=== PATIENT | male | born 1955 | race Hispanic/Latino ===

== ENCOUNTER 2019-12-15 05:57 | Day surgery (SDC) | payer OTHER ==
[~2019-12-15] VITALS: Ht 170.2 cm; Wt 83.0 kg
[~2019-12-15 05:57] MED LIST: BACL10TA PO; BENZ-51 PO; FURO20TA4 PO; METO-391 PO; PANT40TA PO; SUCR1ORA3 PO; SYMB8060 IH
[2019-12-15] MEDS ORDERED: PROPOFOL 10 MG/ML 20ML VIAL IV ONE (06:45)
[2019-12-15 07:00] VITALS: BP 142/79
[2019-12-15] MEDS ORDERED: LORA10CA PO (07:17)
[2019-12-15] MEDS ORDERED: SODIUM CHLORIDE 0.9% 1000ML 1,000 ML IV ONE (07:19)
[2019-12-15 08:30] VITALS: BP 115/67
[2019-12-15 08:35] VITALS: BP 121/65
[2019-12-15 08:40] VITALS: BP 131/75
--- NOTE | 2019-12-15 08:50 | NUR ---
PT LEFT VIA WHEELCHAIR IN PVT CAR, PT. D/C INSTRUCTIONS GIVEN TO , ALONG WITH F/U APPT. PT. V/S STABLE WITH NO COMPLICATION.
== END 2019-12-15 08:50 | disposition home or self-care (01) ==
LOC: ENDO 05:57 → DAH 05:57 → ENDO 08:50
PROVIDERS: ATTEND Internal Medicine
DX: D50.9 Iron deficiency anemia, unspecified (principal); K29.50 Unspecified chronic gastritis without bleeding; K57.30 Diverticulosis of large intestine without perforation or abscess without bleeding; K64.0 First degree hemorrhoids; I10 Essential (primary) hypertension; E78.5 Hyperlipidemia, unspecified; J45.909 Unspecified asthma, uncomplicated; Z88.8 Allergy status to other drugs, medicaments and biological substances; Z79.899 Other long term (current) drug therapy; Z72.89 Other problems related to lifestyle; Z98.49 Cataract extraction status, unspecified eye; Z98.890 Other specified postprocedural states; Z82.49 Family history of ischemic heart disease and other diseases of the circulatory system; Z83.3 Family history of diabetes mellitus
CPT/HCPCS: 43239; 45378; 88305; A4215; A4221; A4222; A4223; A4606; A4620; A4663; J2704; J7030

== ENCOUNTER 2020-06-28 16:56 | Inpatient (IN) | payer OTHER ==
[~2020-06-28 16:56] MED LIST changes: -BENZ-51 PO; +LORA10CA PO
[2020-06-28 17:35] LABS: BASOPHILS % (AUTO) 0.6 % (0.0-5.0); EOSINOPHILS % (AUTO) 1.5 % (0.0-8.0); MEAN CORPUSCULAR HEMOGLOBIN 20.5 pg (27.0-33.0); MEAN CORPUSCULAR HGB CONC 26.8 g/dL (32.0-36.0); MEAN CORPUSCULAR VOLUME 76.6 fL (79-99); MONOCYTES % (AUTO) 21.2 % (3.0-13.0); NEUTROPHILS % (AUTO) 62.1 % (40.0-77.0); NUCLEATED RED BLOOD CELLS 5.1 % (0.0-0.19); PLATELET COUNT (AUTO) 270 K/uL (130-400); RED BLOOD CELL COUNT(AUTO) 2.39 MIL/uL (4.50-6.20); WHITE BLOOD COUNT (AUTO) 4.7 K/uL (4.8-10.8)
[2020-06-28 17:49] LABS: HEMATOCRIT 18.3 % (42-54)
[2020-06-28 17:55] LABS: ALBUMIN 2.9 g/dL (3.5-5.0); BILIRUBIN,TOTAL 1.7 mg/dL (0.2-1.0); CREATININE 1.1 mg/dL (0.5-1.5); POTASSIUM 4.1 mmol/L (3.5-5.1); TOTAL PROTEIN, SERUM 6.7 g/dL (6.0-8.3)
[2020-06-28 18:15] LABS: BASOPHILS % (MANUAL) 1 % (0-2); EOSINOPHILS % (MANUAL) 1 % (1-6); LYMPHOCYTES % (MANUAL) 19 % (22-44); MAN.DIFF COMMENT-IMPRESSION MANUAL DIFFERENTIAL; MONOCYTES % (MANUAL) 13 % (2-9); PLATELET MORPHOLOGY COMMENT ADEQUATE; SEGMENTED NEUTROPHILS % 66 % (40-70)
[2020-06-28 18:38] LABS: INR 1.36 (0.85-1.15); PARTIAL THROMBOPLASTIN TIME 29.8 SEC (26.3-35.5); PROTHROMBIN TIME 14.5 SEC (9.6-11.6)
[2020-06-28] MEDS ORDERED: FUROSEMIDE 10 MG/ML 2ML VIAL ONE (19:12)
[2020-06-28] MEDS ORDERED: DiphenhydrAMINE HCL 50 MG/ML VIAL ONE (19:12)
[2020-06-28 22:40] VITALS: BP 119/56
--- NOTE | 2020-06-28 22:40 | NUR ---
PATIENT TRANSFERRED FROM ER WITH 2ND OF 2 UNITS OF PRBC'S INFUSING. PATIENT AWAKE, ALERT AND ORIENTED X3, DENIES DISCOMFORT. NO ACUTE DISTRESS NOTED, WILL CONTINUE TO MONITOR.
--- NOTE | 2020-06-28 23:40 | NUR ---
PATIENT COMPLETED THE SECOND UNIT OF PRBC'S WITHOUT ANY ADVERSE REACTION. PATIENT DENIES DISCOMFORT AT PRESENT. WILL CONTINUE TO MONITOR.
[2020-06-29] VITALS (7 sets, daily range): BP systolic 107–124; BP diastolic 43–77
[2020-06-29] MEDS ORDERED: METO25TA6 PO (00:04)
[2020-06-29] MEDS ORDERED: SUCR1ORA15 PO (00:04)
[2020-06-29] MEDS ORDERED: BACL10TA PO (00:04)
[2020-06-29] MEDS ORDERED: FURO20TA4 PO (00:04)
[2020-06-29] MEDS ORDERED: ALBU8.5H8 IH (00:04)
[2020-06-29] MEDS ORDERED: FOLI1 PO (00:04)
[2020-06-29] MEDS ORDERED: BENZ-17 PO (00:04)
[2020-06-29] MEDS ORDERED: FERS325 PO (00:04)
[2020-06-29] MEDS ORDERED: BENZONATATE 100 MG CAPSULE PO ONE (01:25)
[2020-06-29 06:16] LABS: HEMATOCRIT 23.4 % (42-54); MEAN CORPUSCULAR HEMOGLOBIN 22.6 pg (27.0-33.0); MEAN CORPUSCULAR HGB CONC 28.6 g/dL (32.0-36.0); MEAN CORPUSCULAR VOLUME 78.8 fL (79-99); NUCLEATED RED BLOOD CELLS 4.9 % (0.0-0.19); RED BLOOD CELL COUNT(AUTO) 2.97 MIL/uL (4.50-6.20); RED CELL DISTRIBUTION WIDTH 22.3 % (11.0-15.5); WHITE BLOOD COUNT (AUTO) 4.5 K/uL (4.8-10.8)
[2020-06-29 06:31] LABS: CREATININE 0.9 mg/dL (0.5-1.5); POTASSIUM 3.7 mmol/L (3.5-5.1)
[2020-06-29] MEDS ORDERED: ALBUTEROL INHALER 90MCG/INH IH PRN (10:15)
[2020-06-29] MEDS ORDERED: PANTOPRAZOLE SODIUM 40 MG TABLET.DR ONE (11:08)
[2020-06-29] MEDS ORDERED: FERROUS SULFATE 325 MG TABLET.DR ONE (11:08)
[2020-06-29] MEDS ORDERED: SUCRALFATE 1 GM TABLET ONE (11:09)
[2020-06-29] MEDS ORDERED: METOPROLOL TARTRATE 25 MG TAB ONE (11:09)
[2020-06-29] MEDS ORDERED: FOLIC ACID 1 MG TABLET ONE (11:09)
[2020-06-29] MEDS ORDERED: BACLOFEN 10 MG TABLET ONE (11:10)
[2020-06-29] MEDS: ALBUTEROL SULFATE 0.083% 2.5 MG/3 ML INH IH SCH ×2 (18:29→23:22)
--- NOTE | 2020-06-29 19:15 | NUR ---
ROUNDS VISITED WITH PATIENT. POC DISCUSSED. NEW ORDERS RECEIVED AND CARRIED OUT. PATIENT AWARE. NO QUESTIONS OR CONCERNS VOICED AT THIS TIME. PATIENT AAOX4. NO COMPLAINTS OF PAIN VOICED AT THIS TIME. VITALS STABLE. AFEBRILE. RESP EVEN AND UNLABORED. NO SOB NOTED. NO ACTIVE BLEEDING NOTED. CALL LIGHT WITHIN REACH. WILL CONTINUE TO BE OBSERVED. Addendum: 06/29/20 at 2134 by DERICK ROMAN RN RN Amended: Links added.
[2020-06-29] MEDS: BUDESONIDE 0.5 MG/2 ML INH IH SCH (19:19)
--- NOTE | 2020-06-29 19:57 | NUR ---
INITIAL SW spoke with patient. He lives with spouse. No home services. DME: shower chair, rollator, BPM, nebulizer. Patient is able to complete ADL's independently and drives. PCP is Dr. Martinez. Pharmacy is [facility] on [address]. No safety concerns voiced by patient on returning home. DCP is home. Addendum: 06/29/20 at 1958 by LAUREN MORSE SS Amended: Links added.
[2020-06-29] MEDS: BACLOFEN 10 MG TABLET PO SCH (20:05)
[2020-06-29] MEDS: FUROSEMIDE 10 MG/ML 2ML VIAL IV SCH (20:11)
[2020-06-29] MEDS: METOPROLOL TARTRATE 25 MG TAB PO SCH (20:11)
--- NOTE | 2020-06-29 21:34 | NUR ---
BLOOD PATIENT STARTED ON BLOOD TRANSFUSION. VITALS STABLE. AFEBRILE. NO ADVERSE REACTIONS NOTED. ON ROOM AIR. NO SIGNS OF DISTRESS NOTED. CALL LIGHT WITHIN REACH. WILL CONTINUE TO BE OBSERVED. Addendum: 06/29/20 at 2138 by DERICK ROMAN RN RN Amended: Links added.
[2020-06-30 04:00] VITALS: BP 104/50
[2020-06-30 05:05] LABS: HEMATOCRIT 29.3 % (42-54); MEAN CORPUSCULAR HEMOGLOBIN 23.4 pg (27.0-33.0); MEAN CORPUSCULAR HGB CONC 29.7 g/dL (32.0-36.0); MEAN CORPUSCULAR VOLUME 78.8 fL (79-99); RED BLOOD CELL COUNT(AUTO) 3.72 MIL/uL (4.50-6.20); RED CELL DISTRIBUTION WIDTH 21.2 % (11.0-15.5); WHITE BLOOD COUNT (AUTO) 5.7 K/uL (4.8-10.8)
[2020-06-30 05:11] LABS: CREATININE 0.9 mg/dL (0.5-1.5); POTASSIUM 3.3 mmol/L (3.5-5.1)
[2020-06-30] MEDS ORDERED: LIDOCAINE HCL-MPF 1% 2ML VIAL IV PRN (05:30)
[2020-06-30] MEDS ORDERED: POTASSIUM CHLORIDE 10% ELIXIR 20 MEQ/15 ML UDCUP PO PRN (05:30)
[2020-06-30] MEDS ORDERED: POTASSIUM CHLORIDE 20MEQ/100ML 100 ML IV PRN (05:30)
[2020-06-30] MEDS: POTASSIUM CHLORIDE 20 MEQ ERTAB PO PRN ×4 (05:40→20:17)
[2020-06-30] MEDS: BUDESONIDE 0.5 MG/2 ML INH IH SCH ×2 (06:28→18:55)
[2020-06-30] MEDS: ALBUTEROL SULFATE 0.083% 2.5 MG/3 ML INH IH SCH ×3 (06:28→18:55)
[2020-06-30 08:11] VITALS: BP 123/47
[2020-06-30] MEDS: FUROSEMIDE 10 MG/ML 2ML VIAL IV SCH ×2 (08:23→20:18)
[2020-06-30] MEDS: BENZONATATE 100 MG CAPSULE PO PRN ×2 (08:23→18:02)
[2020-06-30] MEDS: SUCRALFATE 1 GM TABLET PO SCH (08:23)
[2020-06-30] MEDS: BACLOFEN 10 MG TABLET PO SCH ×2 (08:24→20:17)
[2020-06-30] MEDS: FERROUS SULFATE 325 MG TABLET.DR PO SCH ×2 (08:24→20:17)
[2020-06-30] MEDS: FOLIC ACID 1 MG TABLET PO SCH (08:24)
[2020-06-30] MEDS: METOPROLOL TARTRATE 25 MG TAB PO SCH ×2 (08:24→20:17)
[2020-06-30] MEDS: PANTOPRAZOLE SODIUM 40 MG TABLET.DR PO SCH (08:24)
[2020-06-30 11:49] VITALS: BP 116/51
[2020-06-30 16:58] VITALS: BP 118/60
[2020-06-30 20:00] VITALS: BP 122/60
[2020-06-30] MEDS ORDERED: GUAIFENESIN-CODEINE 5 ML SYRUP PO PRN (21:15)
[2020-07-01] VITALS: BP 114/63
[2020-07-01] MEDS: ALBUTEROL SULFATE 0.083% 2.5 MG/3 ML INH IH SCH ×4 (01:59→18:26)
[2020-07-01 03:44] VITALS: BP 111/63
[2020-07-01] MEDS: BUDESONIDE 0.5 MG/2 ML INH IH SCH ×2 (07:09→18:27)
[2020-07-01 08:00] VITALS: BP 128/71
[2020-07-01] MEDS ORDERED: FUROSEMIDE 20 MG TABLET PO SCH (09:00)
[2020-07-01] MEDS: METOPROLOL TARTRATE 25 MG TAB PO SCH (09:49)
[2020-07-01] MEDS: FOLIC ACID 1 MG TABLET PO SCH (09:49)
[2020-07-01] MEDS: SUCRALFATE 1 GM TABLET PO SCH (09:49)
[2020-07-01] MEDS: BACLOFEN 10 MG TABLET PO SCH (09:50)
[2020-07-01] MEDS: PANTOPRAZOLE SODIUM 40 MG TABLET.DR PO SCH (09:50)
[2020-07-01] MEDS: FERROUS SULFATE 325 MG TABLET.DR PO SCH (09:50)
[2020-07-01] MEDS: FUROSEMIDE 10 MG/ML 2ML VIAL IV SCH (09:56)
[2020-07-01] MEDS: BENZONATATE 100 MG CAPSULE PO PRN (10:58)
[2020-07-01 11:00] VITALS: BP 124/64
[2020-07-01] MEDS ORDERED: TRAMADOL /APAP 37.5MG/325MG TAB PO PRN (15:15)
[2020-07-01 16:00] VITALS: BP 124/52
--- NOTE | 2020-07-01 17:55 | NUR ---
INFORMED MD PER LAB RAPID COVID TEST ,PRESUMPTIVE NEGATIVE
[2020-07-01] MEDS ORDERED: FURO20TA6 PO (20:19)
[2020-07-01 20:25] VITALS: BP 107/52
[2020-07-02] MEDS ORDERED: FUROSEMIDE 20 MG TABLET PO SCH (09:00)
== END 2020-07-01 21:10 | disposition home or self-care (01) | DRG 434 ==
LOC: EDH 16:56 → EDHIP 20:10 → 3DH 21:32
PROVIDERS: ADMIT Internal Medicine; ATTEND Internal Medicine
PROC: 30233N1 Transfusion of Nonautologous Red Blood Cells into Peripheral Vein, Percutaneous Approach (ICD-10-PCS; principal; 2020-06-28)
DX: K74.60 Unspecified cirrhosis of liver (principal); D64.9 Anemia, unspecified; F10.10 Alcohol abuse, uncomplicated; I10 Essential (primary) hypertension; I48.0 Paroxysmal atrial fibrillation; Z20.828 Contact with and (suspected) exposure to other viral communicable diseases; Z86.73 Personal history of transient ischemic attack (TIA), and cerebral infarction without residual deficits; Z98.49 Cataract extraction status, unspecified eye
CPT/HCPCS: 36415; 36430; 71045; 80048; 80053; 82550; 83880; 84132; 84484; 85025; 85027; 85610; 85730; 86850; 86900; 86901; 86923; 87426; 93005; 94640; 94664; 99291; G0378; J1200; J1940; P9016

== ENCOUNTER → 2021-01-21 | Outpatient (CLI) | payer OTHER ==
[~2021-01-21] MED LIST changes: +ALBU8.5H8 IH; +BENZ-17 PO; +FERS325 PO; +FOLI1 PO; +FURO20TA6 PO; -LORA10CA PO; -METO-391 PO; +METO25TA6 PO; +SUCR1ORA15 PO; -SUCR1ORA3 PO
== END | disposition home or self-care (01) ==
LOC: RAH 12:51
PROVIDERS: ATTEND Orthopaedic Surgery
DX: M75.111 Incomplete rotator cuff tear or rupture of right shoulder, not specified as traumatic (principal); M75.42 Impingement syndrome of left shoulder; M75.41 Impingement syndrome of right shoulder
CPT/HCPCS: 73221

== ENCOUNTER 2021-07-10 15:57 | Emergency (ER) | payer OTHER ==
[~2021-07-10] VITALS: Ht 170.2 cm; Wt 90.3 kg
[2021-07-10 16:09] VITALS: BP 176/88
[2021-07-10] MEDS ORDERED: HYDROCODONE/ACETAMINOPHEN 5/325 MG TAB PO ONE (16:30)
[2021-07-10] MEDS ORDERED: TETANUS/DIPHTHERIA TOXOID [ADULT] 0.5 ML VIAL IM ONE (16:30)
[2021-07-10] MEDS ORDERED: CEPHALEXIN 500 MG CAPSULE PO ONE (16:30)
[2021-07-10 16:53] LABS: BASOPHILS % (AUTO) 0.4 % (0.0-5.0); EOSINOPHILS % (AUTO) 0.3 % (0.0-8.0); HEMATOCRIT 41.7 % (42-54); LYMPHOCYTES % (AUTO) 12.3 % (21.0-51.0); MEAN CORPUSCULAR HEMOGLOBIN 32.5 pg (27.0-33.0); MEAN CORPUSCULAR HGB CONC 33.6 g/dL (32.0-36.0); MEAN CORPUSCULAR VOLUME 96.8 fL (79-99); MONOCYTES % (AUTO) 10.7 % (3.0-13.0); NEUTROPHILS % (AUTO) 75.7 % (40.0-77.0); PLATELET COUNT (AUTO) 204 K/uL (130-400); RED BLOOD CELL COUNT(AUTO) 4.31 MIL/uL (4.50-6.20); RED CELL DISTRIBUTION WIDTH 16.3 % (11.0-15.5); WHITE BLOOD COUNT (AUTO) 10.5 K/uL (4.8-10.8)
[2021-07-10 17:17] LABS: CARBON DIOXIDE 26 mmol/L (21-32); CHLORIDE 95 mmol/L (101-111); CREATININE 0.8 mg/dL (0.5-1.5); GLOMERULAR FILTR. RATE CALC 102 mL/min (>60); GLUCOSE,RANDOM 95 mg/dL (70-105); POTASSIUM 3.9 mmol/L (3.5-5.1); SODIUM SERUM 133 mmol/L (136-145); UREA NITROGEN, BLOOD 8 mg/dL (7-18)
[2021-07-10 17:21] LABS: ALANINE AMINOTRANSFERASE 35 U/L (12-78); ALBUMIN 3.5 g/dL (3.5-5.0); ASPARTATE AMINOTRANSFERASE 32 U/L (10-37); TOTAL PROTEIN, SERUM 6.9 g/dL (6.0-8.3)
[2021-07-10 17:29] LABS: CRP QUANTITATIVE < 2.00 mg/L (0.00-9.0)
[2021-07-10] MEDS ORDERED: CEPH500B PO (17:48)
[2021-07-10] MEDS ORDERED: ACET-2247 PO (17:48)
[2021-07-10] MEDS ORDERED: CLINDAMYCIN 150 MG CAP PO ONE (18:00)
== END 2021-07-10 18:09 | disposition home or self-care (01) ==
LOC: EDH 15:57
DX: S02.2XXA Fracture of nasal bones, initial encounter for closed fracture (principal); S50.02XA Contusion of left elbow, initial encounter; I10 Essential (primary) hypertension; I48.91 Unspecified atrial fibrillation; Z79.51 Long term (current) use of inhaled steroids; Z79.899 Other long term (current) drug therapy; Z86.73 Personal history of transient ischemic attack (TIA), and cerebral infarction without residual deficits; Z88.8 Allergy status to other drugs, medicaments and biological substances; W18.39XA Other fall on same level, initial encounter; Y93.89 Activity, other specified; Y92.89 Other specified places as the place of occurrence of the external cause; Y99.8 Other external cause status
CPT/HCPCS: 36415; 70450; 70486; 72125; 73070; 80053; 84484; 85025; 86140; 90471; 90714; 93005